=== PATIENT | male | born 1980 | race Caucasian/White ===

== ENCOUNTER 2020-04-01 18:41 | Emergency (ER) | payer SELFPAY ==
[~2020-04-01] VITALS: Ht 198.1 cm; Wt 188.0 kg
[~2020-04-01 18:41] MED LIST: AMOXICILLIN500 MG PO
[2020-04-01] MEDS ORDERED: CLONIDINE0.1 MG PO (20:16)
[2020-04-01 21:25] VITALS: BP 187/90
== END 2020-04-01 21:25 | disposition home or self-care (01) | DRG 305 ==
LOC: ED 18:41
DX: I10 Essential (primary) hypertension (principal)